=== PATIENT | male | born 1940 | race Caucasian/White ===

== ENCOUNTER 2024-09-28 10:40 | Day surgery (SDC) | payer MEDICARE, BC ==
[~2024-09-28] VITALS: Ht 165.1 cm; Wt 71.2 kg
[~2024-09-28 10:40] MED LIST: AMLODIPINE PO; ATEN25TA PO; CIPR-249 PO; FINA5TAB2 PO; GNP250TA9 PO; KLOR1TAB77 PO; LEVO25TA5; LOSA25TA13 PO; LR 1,000 ML IV SCH; MECL-86; PERC5TAB12 PO; SLOWTAB3 PO; TERA2CAP3; TIZA4CAP PO; TRIA37.577 PO; VITA200012 PO; VITA200016 PO
[2024-09-28] MEDS: PHENYLEPHRINE 2.5% OPHTH SOL 2ML OS SCH (12:42)
[2024-09-28] MEDS: FLURBIPROFEN 0.03% OPHTH SOLN 2.5 ML OS SCH (12:42)
[2024-09-28] MEDS: TETRACAINE 0.5% OPHTH SOLN 4ML OS SCH (12:42)
[2024-09-28] MEDS: CYCLOPENTOLATE 1% OPHTH SOLN 2ML BTL OS SCH (12:42)
[2024-09-28] MEDS ORDERED: fentaNYL 100 MCG/2 ML INJECTION As Ordered ONE (13:14)
[2024-09-28] MEDS ORDERED: MIDAZOLAM INJ 2MG/2ML VIAL As Ordered ONE (13:14)
[2024-09-28] MEDS: LIDOCAINE 1% SDV 5ML VIAL As Ordered ONE (13:56)
[2024-09-28] MEDS: CEFUROXIME 1MG/0.1ML INTRACAMERAL INJ As Ordered ONE (14:16)
[2024-09-28 14:27] VITALS: BP 159/75; TEMP 97.6; O2SAT 95
== END 2024-09-28 14:45 | disposition home or self-care (01) ==
LOC: M SDC 10:40
PROVIDERS: ATTEND Ophthalmology
DX: H25.12 Age-related nuclear cataract, left eye (principal); H52.202 Unspecified astigmatism, left eye; I10 Essential (primary) hypertension; E03.9 Hypothyroidism, unspecified; N40.0 Benign prostatic hyperplasia without lower urinary tract symptoms; N28.9 Disorder of kidney and ureter, unspecified; Z79.899 Other long term (current) drug therapy; Z79.890 Hormone replacement therapy; Z79.82 Long term (current) use of aspirin; Z85.07 Personal history of malignant neoplasm of pancreas; Z85.46 Personal history of malignant neoplasm of prostate; Z87.891 Personal history of nicotine dependence
CPT/HCPCS: 66984; J0697; J2250; J3010; V2787

== ENCOUNTER 2024-11-30 12:43 | Day surgery (SDC) | payer MEDICARE, BC ==
[~2024-11-30] VITALS: Ht 165.1 cm; Wt 70.8 kg
[2024-11-30] MEDS: CYCLOPENTOLATE 1% OPHTH SOLN 2ML BTL OD SCH (13:31)
[2024-11-30] MEDS: PHENYLEPHRINE 2.5% OPHTH SOL 2ML OD SCH (13:31)
[2024-11-30] MEDS: FLURBIPROFEN 0.03% OPHTH SOLN 2.5 ML OD SCH (13:31)
[2024-11-30] MEDS: TETRACAINE 0.5% OPHTH SOLN 4ML OD SCH (13:31)
[2024-11-30] MEDS ORDERED: fentaNYL 100 MCG/2 ML INJECTION As Ordered ONE (14:24)
[2024-11-30] MEDS: LIDOCAINE 1% SDV 5ML VIAL As Ordered ONE (15:11)
[2024-11-30] MEDS: CEFUROXIME 1MG/0.1ML INTRACAMERAL INJ As Ordered ONE (15:11)
[2024-11-30 15:42] VITALS: BP 121/77; TEMP 97.5; O2SAT 97
== END 2024-11-30 15:58 | disposition home or self-care (01) ==
LOC: M SDC 12:43
PROVIDERS: ATTEND Ophthalmology
DX: H25.11 Age-related nuclear cataract, right eye (principal); I12.9 Hypertensive chronic kidney disease with stage 1 through stage 4 chronic kidney disease, or unspecified chronic kidney disease; N18.9 Chronic kidney disease, unspecified; N40.0 Benign prostatic hyperplasia without lower urinary tract symptoms; Z79.899 Other long term (current) drug therapy; Z79.82 Long term (current) use of aspirin; Z79.890 Hormone replacement therapy; Z85.46 Personal history of malignant neoplasm of prostate; Z90.79 Acquired absence of other genital organ(s); Z91.013 Allergy to seafood
CPT/HCPCS: 66984; J0697; J3010; V2787